=== PATIENT | male | born 1985 | race Caucasian/White ===

== ENCOUNTER → 2016-05-28 | Day surgery (SDC) | payer OTHER ==
[~2016-05-28] VITALS: Ht 154.9 cm; Wt 103.4 kg
[~2016-05-28] MED LIST: ATIVAN0.5 MG PO; CALMOSEPTINE OI71 GM TP; CLARITIN10 M2 PO; COLACE 100MG C100 MG PO; IMODIUM CAP 2 MG2 MG GT; INTUNIV3 MG PO; INVEGA6 MG PO; KEPPRA250 MG PO; MIRALAX17 GM PO; NASONEX SPRAY 117 GM; PROTONIX40 MG PO; TOPAMAX50 MG PO; TYLENOL 325MG325 MG PO; ZANTAC300 MG PO
== END | disposition home or self-care (01) ==
LOC: OR 07:06
PROVIDERS: Internal Medicine Gastroenterology
PROC: 0DB68ZX Excision of Stomach, Via Natural or Artificial Opening Endoscopic, Diagnostic (ICD-10-PCS; principal; 2016-05-28 10:45)
DX: K29.50 Unspecified chronic gastritis without bleeding (principal); K21.0 Gastro-esophageal reflux disease with esophagitis; K44.9 Diaphragmatic hernia without obstruction or gangrene; J45.909 Unspecified asthma, uncomplicated; G80.9 Cerebral palsy, unspecified; F84.0 Autistic disorder; Z88.2 Allergy status to sulfonamides; Z98.890 Other specified postprocedural states
CPT/HCPCS: J7030